=== PATIENT | female | born 1995 | race Caucasian/White ===

== ENCOUNTER 2020-06-28 08:51 | Emergency (ER) | payer OTHER ==
[~2020-06-28] VITALS: Ht 180.3 cm; Wt 121.8 kg
[2020-06-28 08:57] VITALS: Ht 180.3 cm; Wt 121.8 kg
[2020-06-28] MEDS ORDERED: PRENAVITE1 TAB PO (08:59)
[2020-06-28] MEDS ORDERED: DOXYCYCLINE HY100 M2 PO (09:22)
[2020-06-28 10:10] VITALS: BP 140/86
== END 2020-06-28 10:20 | disposition home or self-care (01) ==
LOC: D.ER 08:51
DX: S61.452A Open bite of left hand, initial encounter (principal); W54.0XXA Bitten by dog, initial encounter

== ENCOUNTER 2020-07-05 16:33 | Outpatient (CLI) | payer OTHER ==
[2020-06-28 08:57] VITALS: BMI 37.4
[~2020-07-05 16:33] MED LIST: DOXYCYCLINE HY100 M2 PO; PRENAVITE1 TAB PO
[2020-07-05 18:03] LABS: BASOPHILS 0.2 % (0-2); HEMATOCRIT 31.5 % (36.0-48.0); HEMOGLOBIN 10.5 g/dL (12-16); IMMATURE GRANULOCYTES 0.2 % (0-5); LYMPHOCYTES 19.3 % (15-50); MCH 29.9 pg (26.0-34.0); MCHC 33.3 g/dL (31.0-37.0); MCV 89.7 fL (80.0-100.0); MEAN PLATELET VOLUME 12.4 fL (7.4-10.4); MONOCYTES 8.7 % (2-11); NEUTROPHILS 70.6 % (40-80); PLATELET COUNT 163 10x3/uL (130-400); RBC 3.51 10x6/uL (4.00-5.40); RDW 12.5 % (11.5-14.5); WBC 9.1 10x3/uL (4.8-10.8)
[2020-07-05 18:24] LABS: CALC OSMOLALITY 271 mosm/kg (275-300); CALCIUM 9.2 mg/dL (8.5-10.1); CARBON DIOXIDE 21.2 mmol/L (21.0-32.0); CHLORIDE - SERUM 105 mmol/L (98-107); CREATININE - SERUM 0.6 mg/dL (0.6-1.3); GLUCOSE 75 mg/dL (74-106); SODIUM 136 mmol/L (136-145); UREA NITROGEN 14 mg/dL (7-18); eGFR NON AFRICAN AMERICAN > 90 mL/min (90-120)
[2020-07-05 18:31] LABS: ALBUMIN 2.3 g/dL (3.4-5.0); ALKALINE PHOSPHATASE 108 U/L (30-120); ALT (SGPT) 16 U/L (10-68); BILIRUBIN - TOTAL 0.16 mg/dL (0.2-1.3); PROTEIN - SERUM 6.3 g/dL (6.4-8.2); URIC ACID 3.1 mg/dL (2.6-7.2)
[2020-07-05 18:38] LABS: BILIRUBIN - INDIRECT 0.16 mg/dL (0.00-1.00)
[2020-07-06 19:03] LABS: PROTEIN - URINE 38.1 mg/dL (0.0-11.9)
== END 2020-07-05 18:55 | disposition home or self-care (01) ==
LOC: D.LDO 16:33
PROVIDERS: ATTEND Obstetrics & Gynecology
DX: O14.90 Unspecified pre-eclampsia, unspecified trimester (principal)

== ENCOUNTER 2020-07-07 08:53 | Outpatient (CLI) | payer OTHER ==
[2020-06-28 08:57] VITALS: BMI 37.4
== END 2020-07-07 09:34 | disposition home or self-care (01) ==
LOC: D.LDO 08:53
PROVIDERS: ATTEND Obstetrics & Gynecology
DX: O14.03 Mild to moderate pre-eclampsia, third trimester (principal); Z3A.32 32 weeks gestation of pregnancy

== ENCOUNTER 2020-07-08 09:26 | Outpatient (CLI) | payer OTHER ==
[2020-06-28 08:57] VITALS: BMI 37.4
== END 2020-07-08 09:44 | disposition home or self-care (01) ==
LOC: D.LDO 09:26
PROVIDERS: ATTEND Obstetrics & Gynecology
DX: O26.899 Other specified pregnancy related conditions, unspecified trimester (principal); Z79.52 Long term (current) use of systemic steroids

== ENCOUNTER 2020-07-13 08:49 | Outpatient (CLI) | payer OTHER ==
[2020-06-28 08:57] VITALS: BMI 37.4
== END 2020-07-13 11:05 | disposition home or self-care (01) ==
LOC: D.LDO 08:49
PROVIDERS: ATTEND Obstetrics & Gynecology
DX: Z34.93 Encounter for supervision of normal pregnancy, unspecified, third trimester (principal)

== ENCOUNTER 2020-07-14 07:20 | Outpatient (CLI) | payer OTHER ==
[2020-06-28 08:57] VITALS: BMI 37.4
[2020-07-14 08:32] LABS: BASOPHILS 0.1 % (0-2); EOSINOPHILS 1.4 % (0-7); HEMATOCRIT 34.4 % (36.0-48.0); HEMOGLOBIN 11.5 g/dL (12-16); IMMATURE GRANULOCYTES 0.6 % (0-5); LYMPHOCYTES 21.6 % (15-50); MCH 29.9 pg (26.0-34.0); MCHC 33.4 g/dL (31.0-37.0); MCV 89.4 fL (80.0-100.0); MEAN PLATELET VOLUME 13.4 fL (7.4-10.4); MONOCYTES 7.3 % (2-11); PLATELET COUNT 150 10x3/uL (130-400); RBC 3.85 10x6/uL (4.00-5.40); RDW 12.4 % (11.5-14.5); WBC 8.6 10x3/uL (4.8-10.8)
[2020-07-14 08:38] LABS: CALC OSMOLALITY 268 mosm/kg (275-300); CALCIUM 8.3 mg/dL (8.5-10.1); CARBON DIOXIDE 22.1 mmol/L (21.0-32.0); CHLORIDE - SERUM 104 mmol/L (98-107); CREATININE - SERUM 0.6 mg/dL (0.6-1.3); GLUCOSE 88 mg/dL (74-106); POTASSIUM - SERUM 4.1 mmol/L (3.5-5.1); SODIUM 135 mmol/L (136-145); UREA NITROGEN 13 mg/dL (7-18); eGFR NON AFRICAN AMERICAN > 90 mL/min (90-120)
[2020-07-14 08:43] LABS: ALBUMIN 1.9 g/dL (3.4-5.0); ALKALINE PHOSPHATASE 109 U/L (30-120); ALT (SGPT) 16 U/L (10-68); BILIRUBIN - DIRECT 0.02 mg/dL (0.00-0.30); BILIRUBIN - INDIRECT 0.08 mg/dL (0.00-1.00); PROTEIN - SERUM 5.7 g/dL (6.4-8.2); URIC ACID 3.2 mg/dL (2.6-7.2)
[2020-07-14 08:54] LABS: PROTEIN - URINE 600.2 mg/dL (0.0-11.9)
== END 2020-07-14 14:03 | disposition other institution (70) ==
LOC: D.LDO 07:20
PROVIDERS: Obstetrics & Gynecology; ATTEND Student in an Organized Health Care Education/Training Program
DX: O26.893 Other specified pregnancy related conditions, third trimester (principal); Z3A.33 33 weeks gestation of pregnancy; R42 Dizziness and giddiness; R11.0 Nausea; R51 Headache